=== PATIENT | female | born 1990 | race Caucasian/White ===

== ENCOUNTER 2017-03-16 10:34 | Emergency (ER) | payer SELFPAY | END 2017-03-16 11:21 | disposition home or self-care (01) | LOC: D.ER 10:34 | DX: N39.0 Urinary tract infection, site not specified (principal) ==

== ENCOUNTER 2019-03-17 18:18 | Emergency (ER) | payer MEDICAID ==
[~2019-03-17] VITALS: Ht 157.5 cm; Wt 55.5 kg
[2019-03-17 18:31] VITALS: BP 133/78; Ht 157.5 cm; Wt 55.5 kg
[2019-03-17] MEDS ORDERED: VALIUM 2 MG TAB2 MG PO (18:32)
[2019-03-17] MEDS ORDERED: BUPROPION HCL75 MG PO (18:32)
== END 2019-03-17 19:09 | disposition left against medical advice (07) ==
LOC: D.ER 18:18
DX: R05 Cough (principal)